=== PATIENT | female | born 1975 | race Caucasian/White ===

== ENCOUNTER 2019-12-13 13:39 | Outpatient (CLI) | payer OTHER | END 2019-12-13 13:40 | disposition home or self-care (01) | LOC: COV 13:39 | PROVIDERS: ATTEND Family Medicine | DX: Z20.828 Contact with and (suspected) exposure to other viral communicable diseases (principal) ==

== ENCOUNTER 2020-03-18 22:19 | Emergency (ER) | payer OTHER ==
--- NOTE | 2020-03-18 22:32 | ED Physician Documentation ---
PD HPI LOWER EXT INJURY - Stated complaint Stated Complaint: RT KNEE PX - Chief complaint Chief Complaint: Ext Problem - History obtained from History obtained from: Patient - History of Present Illness PD HPI LOW EXT INJURY LOCATION: Right, Knee Type of injury: Other (no noted abrupt injury. She had been kneeling on firm surface some and walking on uneven ground (up at [place] in parking lot, but did not go skiing herself). Onset hurting later in day and next day, with persistence. Worse pain today on ROM.). No: Fall, Twist Timing - onset: How many days ago (5) Timing - duration: Days Timing - details: Gradual onset, Still present Worsened by: Moving (flexion and extension. Hurts for straight leg lift. Also noted pain with torsional movement of knee while standing. Denies locking nor giving out. Some grinding feeling with extension.), Palpating (anteriorly mainly) Associated symptoms: Swelling. No: Weakness, Numbness, Discolored Similar symptoms before: Has not had sx before Recently seen: Not recently seen Review of Systems Constitutional: denies: Fever Nose: denies: Rhinorrhea / runny nose, Congestion Throat: reports: Dental pain / toothache (month or so ago with some swelling left upper tooth. It subsequently drainage and improved. Has pain right lower tooth without swelling nor drainage for the past few days.). denies: Sore throat Respiratory: denies: Cough GI: denies: Vomiting, Diarrhea Skin: denies: Rash Musculoskeletal: denies: Back pain PD PAST MEDICAL HISTORY - Past Medical History Cardiovascular: None Respiratory: None Neuro: None Musculoskeletal: None - Present Medications Home Medications: Ambulatory Orders Medication Instructions Recorded Confirmed HYDROcod/ACETAM 5/325 [[place] 5/325] 1 ea PO Q6H PRN #15 tablet 03/18/20 Naproxen Sodium [Anaprox Ds] 550 mg PO BID #20 tablet 03/18/20 Rizatriptan Benzoate [Maxalt] 10 mg PO DAILY PRN 03/18/20 03/18/20 - Allergies Allergies/Adverse Reactions: Allergies Allergy/AdvReac Type Severity Reaction Status Date / Time gluten Allergy Nausea Verified 03/18/20 22:27 PD ED PE NORMAL - Vitals Vital signs reviewed: Yes - General General: Alert and oriented X 3, No acute distress, Well developed/nourished - Derm Derm: Normal color, Warm and dry, No rash - Extremities Extremities: No edema, No calf tenderness / cord, Other (The right knee has tenderness anteriorly and at the infrapatellar area. There is some mild crepitant feeling on range of motion of the knee in that area consistent with tendinitis. No redness nor warmth is noted. No skin sores. Cruciate and collateral testing are without any laxity nor pain.) - Neuro Neuro: No motor deficit, No sensory deficit Results - Vitals Vitals: Vital Signs - 24 hr 03/18/20 03/19/20 22:24 00:03 Temperature 36.5 C 36.7 C Heart Rate 63 67 Respiratory 16 16 Rate Blood Pressure 103/66 107/71 O2 Saturation 98 98 - Rads (name of study) right knee Radiology: Prelim report reviewed (normal), See rad report PD MEDICAL DECISION MAKING - ED course Complexity details: reviewed results, considered differential (seems likely some tendonitis anteriorly. Does not seem bursitis. Consider some meniscl inflammation without tear. ), d/w patient Departure - Departure Disposition: 01 Home, Self Care Clinical Impression: Acute meniscal injury of right knee Qualifiers: Encounter type: initial encounter Qualified Code(s): S83.8X1A - Sprain of other specified parts of right knee, initial encounter Condition: Stable Record reviewed to determine appropriate education?: Yes Instructions: ED Meniscal Injury Knee Poss Follow-Up: Neel Garrett MD [Provider Admit Priv/Credential] - Prescriptions: Naproxen Sodium [Anaprox Ds] 550 mg PO BID #20 tablet HYDROcod/ACETAM 5/325 [[place] 5/325] 1 ea PO Q6H PRN #15 tablet PRN Reason: Pain Comments: Straight appears normal. Your symptoms and the exam seem likely consistent with elements of some prepatellar tendinitis. There is also some elements that sound like some meniscal inflammation. These would both be treated with anti-inflammatories and supported or guarded range of motion of the knee with the knee brace when up and around. Use the knee brace when up and around over the next week or so. You can have it off when rested for comfort. Use naproxen anti-inflammatory twice daily with food regularly for the next week. To that add Tylenol every 4-6 hours for pain or hydrocodone if needed for worse pain. I would anticipate improvement in your symptoms gradually over the next several days and resolved within a week. Follow-up with your primary care or orthopedics if persistent symptoms to assess for other potential treatments such as physical therapy or other knee brace types. Discharge Date/Time: 03/19/20 00:08
[2020-03-18] MEDS ORDERED: HYDROcod/ACETAM 5/325 MG TABLET PO STA (22:58)
[2020-03-18] MEDS ORDERED: IBUPROFEN 600 MG TABLET PO STA (22:58)
[2020-03-19 00:06] VITALS: BP 107/71
--- NOTE | 2020-03-19 08:41 | XRAY Report ---
PROCEDURE: Knee 3 View RT INDICATIONS: RIGHT knee pain; no abrupt injury TECHNIQUE: 2 views of the right knee(s) were acquired. COMPARISON: None. FINDINGS: Bones: No fractures or dislocations. No suspicious bony lesions. Soft tissues: Moderate sized joint effusion. No suspicious soft tissue calcifications. IMPRESSION: Moderate sized knee joint effusion. No acute osseous finding. Reviewed by: Christoph French MD on 03/19/2020 8:40 AM PST Approved by: Christoph French MD on 03/19/2020 8:40 AM PST Station ID: [id number]
== END 2020-03-19 00:08 | disposition home or self-care (01) ==
LOC: ED 22:19
DX: S83.8X1A Sprain of other specified parts of right knee, initial encounter (principal); X58.XXXA Exposure to other specified factors, initial encounter; Y93.01 Activity, walking, marching and hiking; Y92.828 Other wilderness area as the place of occurrence of the external cause
CPT/HCPCS: 73562; 99283; A9270

== ENCOUNTER 2020-03-24 14:22 | Outpatient (CLI) | payer OTHER ==
--- NOTE | 2020-03-24 16:50 | XRAY Report ---
PROCEDURE: Knee 4 View RT INDICATIONS: R KNEE PX TECHNIQUE: 3 views of the right knee(s) were acquired. COMPARISON: None. FINDINGS: Bones: No fractures or dislocations. No suspicious bony lesions. Soft tissues: Moderate joint effusion. No suspicious soft tissue calcifications. Reviewed by: Tommie Early MD on 03/24/2020 4:49 PM PST Approved by: Tommie Early MD on 03/24/2020 4:49 PM PST Station ID: [id number]
== END 2020-03-24 23:59 | disposition home or self-care (01) ==
LOC: DI.N 14:22
PROVIDERS: ATTEND Orthopaedic Surgery
DX: M25.561 Pain in right knee (principal); M25.461 Effusion, right knee